=== PATIENT | female | born 1990 | race Caucasian/White ===

== ENCOUNTER 2024-08-22 15:45 | Emergency (ER) | payer MEDICAID, SELFPAY ==
--- NOTE | 2024-08-22 16:26 | XR_ITS ---
EXAMINATION: US OB <= 14 weeks fetus ORDERING PROVIDER: Pete Bland NP HISTORY: abd pain with vaginal spotting TECHNIQUE: Multiplanar still ultrasonography of the pelvis was performed using grayscale imaging, supplemented by color and spectral Doppler as needed. Images were performed transabdominally . COMPARISON: None. FINDINGS: Uterus measures 3.3 x 7.5 x 12.5 cm. Gravid uterus with intrauterine gestation identified. Gestational sac measures 7.3 cm. [place]-rump length 8.0 cm corresponding to dates of 14 weeks 0 days. heart rate 144 bpm. Posterior placenta. Last menstrual period unknown. Right ovary not visualized due to overlying bowel gas. Left ovary 3.6 x 1.8 x 3.3 cm with arterial flow. No adnexal masses identified. IMPRESSION: Single live intrauterine gestation with sonographic dates of 14 weeks 0 days.
--- NOTE | 2024-08-22 16:27 | PD.EDRME ---
Rapid Medical Screening Exam [facility] Arrival date/time: 08/22/24 15:45 CC: Low abdominal and left upper leg pain, low back pain, vaginal spotting HPI onset 24 hours ago. Patient is a G3, P2 at estimated 14 weeks. Denies fever chills nausea vomiting painful urination or bloody urination. Chief Complaint: Abdominal Pain Time Seen by Provider: 08/22/24 16:24
[2024-08-22 16:30] VITALS: BP 112/85; PULSE 64; RESP 18; TEMP 37.1; O2SAT 98; BMI 30.9
[2024-08-22 17:21] LABS: Basophils % (Auto) 0 % (0-2.5); Eosinophils # (Auto) 0.1 Thou/mm3 (0.0-0.5); Eosinophils % (Auto) 2 % (0-10); Hematocrit 37.4 % (36.0-46.0); Hemoglobin 12.6 g/dL (12.0-16.0); Immature Granulocytes % (Auto) 0 % (0-0); Immature Granulocytes Auto 0.01 Thou/mm3 (0.00-0.00); Lymphocytes # (Auto) 1.6 Thou/mm3 (1.0-4.8); Lymphocytes % (Auto) 31 % (10-50); Mean Corpuscular HGB Conc 33.7 g/dl (31.0-37.0); Mean Corpuscular Hemoglobin 29.9 pg (25.0-35.0); Mean Corpuscular Volume 89 fL (80-100); Monocytes # (Auto) 0.6 Thou/mm3 (0.0-0.8); Monocytes % (Auto) 11 % (0-12); Neutrophils # (Auto) 2.9 Thou/mm3 (1.8-7.7); Neutrophils % (Auto) 56 % (37-80); Nucleated Red Blood Cell % 0 /100 WBC (0); Platelet Count 274 Thou/mm3 (140-440); RDW Standard Deviation 43.7 fL (36.4-46.3); Red Blood Count 4.22 Miln/mm3 (4.00-5.20); White Blood Count 5.1 Thou/mm3 (3.6-11.0)
[2024-08-22 17:57] LABS: Alanine Aminotransferase 15 U/L (10-49); Albumin, Serum 4.2 gm/dL (3.5-5.0); Albumin/Globulin Ratio 1.6 (1.2-2.2); Alkaline Phosphatase 58 U/L (46-116); Anion Gap 11 (7-16); Aspartate Amino Transferase 18 U/L (0-34); BUN/Creatinine Ratio 8 Ratio (12-20); Bilirubin,Total 0.6 mg/dL (0.3-1.2); Blood Urea Nitrogen 5 mg/dL (9-23); Calcium 9.1 mg/dL (8.3-10.6); Calcium (Corrected) 9.1 mg/dL (8.5-10.1); Carbon Dioxide 24.9 mMol/L (20.0-31.0); Chloride 99 mMol/L (98-107); Creatinine (Component) 0.6 mg/dL (0.6-1.3); Estimated Creatinine Clearance 135.3 mL/min (>60); Globulin 2.6 gm/dL (2.3-3.5); Glucose 91 mg/dL (74-106); Osmolality,Calculated 267 (275-295); Sodium 135 mMol/L (136-145); Total Protein 6.8 gm/dL (5.7-8.2); eGFR > 60 See Note
[2024-08-22 18:15] LABS: Collection Type, Urine Clean Catch
[2024-08-22 18:45] LABS: Beta HCG,Quantitative 45608 mIU/mL (<5.0)
[2024-08-22 19:06] LABS: Bilirubin,Urine Negative (Negative); Blood,Urine Negative (Negative); Clarity,Urine Turbid (Clear/Hazy); Color,Urine Lt-Yellow (Lt Yel-Yel); Culture Indicated,Urine Not Indicated; Glucose, Urine Negative (Negative); Ketones,Urine 1+ (Negative); Leukocyte Esterase,Urine Positive (Negative); Nitrite,Urine Negative (Negative); Protein,Urine Negative (Neg - Trace); RBC,Urine 3 /hpf (0-3); Specific Gravity,Urine 1.006 (1.001-1.035); Squamous Epithelial Cell,Urine 10 /hpf (0-5); Urobilinogen,Urine Negative mg/dL (0.0-1.0); WBC,Urine 5 /hpf (0-5)
[2024-08-22 19:37] VITALS: BP 132/70; PULSE 78; RESP 18; TEMP 36.8; O2SAT 99
--- NOTE | 2024-08-22 19:39 | PD.EDADULT ---
ED General RME/HPI General Chief complaint: Abdominal Pain Stated complaint: LOWER ABD/BACK CRAMPS, NAUSEA Time Seen by Provider: 08/22/24 16:24 Arrival date/time: 08/22/24 15:45 RME / HPI RME / HPI narrative: 34-year-old female patient, 3 para 2, about 14 weeks , low abdominal, pelvic pain, and left upper leg pain, low back pain, vaginal spotting HPI onset 24 hours ago. Denies any dysuria. Denies any vomiting denies any fever denies any other complaints no medication was taken prior to arrival. Related Data Home Medications ?Medication ?Instructions ?Recorded ?Confirmed vitamins-iron fumarate 27 1 tab PO QDAY 10/25/19 04/27/22 mg iron-folic acid 0.8 mg tablet ( Vitamin) Previous Rx's ?Medication ?Instructions ?Recorded docusate sodium 100 mg capsule 100 mg PO BID #60 caps 04/28/22 (Colace) lanolin 50 % topical ointment 1 applic topical TID PRN skin 04/28/22 irritation #15 tubes hydrocodone 5 mg-acetaminophen 325 1 tab PO Q6H PRN pain #30 tabs 04/29/22 mg tablet Allergies Allergy/AdvReac Type Severity Reaction Status Date / Time adhesive tape Allergy Intermediate Rash Verified 08/11/23 09:30 Review of Systems Review of Systems Narrative Review of Systems: Review of system reviewed and within normal limits except mentioned in HPI ED Exam Narrative Physical exam: VITAL SIGNS: Reviewed. GENERAL APPEARANCE: Alert and interactive, follows commands, no acute distress, HEAD AND FACE: Non-traumatic. ENT: PERRL, pink conjunctivitis, eyelid no trauma, Mucous membrane moist. NECK: Supple, nontender, no nuchal rigidity. CHEST: No tenderness, no crepitus, no paradoxical movement, no retractions. LUNGS: Clear, well ventilated, symmetric, no rales, no wheezing, no ronchi, no stridor, good breath sounds bilaterally. HEART: Regular rate, regular rhythm, no murmur, no gallops. ABDOMEN: Soft, positive bowel sounds, nondistended, no guarding, nontender, no rebound, no masses, RECTAL: Deferred. GENITAL: Deferred. NEUROLOGICAL: Gross motor function intact sensory function intact, Appropriate for age. MUSCULOSKELETAL: low back nontender, full range of motion. EXTREMITIES: Nontender, full range of motion. SKIN: Color pink, dry, no rash, no lacerations, no abrasions, no contusions. LYMPHATICS: Deferred. Course Quality Measures none Orders Category Date Time Status US OB <= 14 weeks fetus Stat Exams 08/22/24 16:26 Completed ABO/RH Type Stat Lab 08/22/24 17:00 Completed Beta HCG,Quantitative Stat Lab 08/22/24 17:00 Completed CBC Stat Lab 08/22/24 17:00 Completed CMP [Comprehensive Metabolic Panel] Stat Lab 08/22/24 17:00 Completed Urinalysis, C/S if Indicated Stat Lab 08/22/24 17:46 Completed Vital Signs Vital signs: Vital Signs Temperature 98.7 F 08/22/24 16:30 Pulse Rate 64 08/22/24 16:30 Respiratory Rate 18 08/22/24 16:30 Blood Pressure 112/85 H 08/22/24 16:30 Pulse Oximetry (%) 98 08/22/24 16:30 Oxygen Delivery Method Room Air 08/22/24 16:30 MDM Patient data External records reviewed:: None Clinical information provided by:: patient Social determinants that could affect healthcare access:: none Patient has the following chronic illnesses:: None How is presenting disease/condition affected by chronic disease/condition?: no chronic disease Evaluation data The following diagnostics were reviewed and interpreted by me:: lab results and radiology exam(s) Lab and/or radiology exams considered but not ordered:: None Interpretation Summary: See results in MDM Medications Medications considered but not ordered:: None Medication administrations:: None Consultations Consultation(s) initiated? (list below): No Diagnosis Differential Diagnosis ED Complaint MDM: Pelvic pain, UTI, incomplete threatened Most likely diagnosis given after review of the tests above:: Pelvic pain, 14 weeks Admission Indicated Admission indicated?: not indicated Explain why admission is indicated or not indicated:: Stable Admission Request Was there a request for admission?: No Disposition Plan Disposition Plan: Discharge Discharge Attestation Discharge Attestation: The patient was given an opportunity to ask questions and understood the discharge instructions. Discharge instructions specifically effects, indications for sooner follow up or return to the emergency department, and the expected course of current diagnosis. Patient condition: Stable Medical Decision Making MDM Narrative MDM Narrative: 34-year-old female patient, 3 para 2, about 14 weeks , low abdominal, pelvic pain, and left upper leg pain, low back pain, vaginal spotting HPI onset 24 hours ago. Denies any dysuria. Denies any vomiting denies any fever denies any other complaints no medication was taken prior to arrival. Laboratory workup all came back normal including normal urinalysis. Ultrasound of the showed single live intrauterine gestation about 14 weeks gestation. Results discussed with the patient. Patient appears nontoxic and hemodynamically stable. Patient discharged home and instructed to follow-up with primary care provider in 24 to 48 hours. Instructed to return to the emergency department immediately if worsening of symptoms Differential Diagnosis Differential Diagnosis: Pelvic pain, UTI, incomplete threatened Lab Data 08/22/24 17:00 08/22/24 17:00 Labs: Lab Results 08/22/24 08/22/24 Range/Units 17:00 17:46 WBC 5.1 (3.6-11.0) Thou/mm3 RBC 4.22 (4.00-5.20) Miln/mm3 Hgb 12.6 (12.0-16.0) g/dL Hct 37.4 (36.0-46.0) % MCV 89 (80-100) fL MCH 29.9 (25.0-35.0) pg MCHC 33.7 (31.0-37.0) g/dl RDW Std Deviation 43.7 (36.4-46.3) fL Plt Count 274 (140-440) Thou/mm3 Neut % (Auto) 56 (37-80) % Lymph % (Auto) 31 (10-50) % [place] % (Auto) 11 (0-12) % Eos % (Auto) 2 (0-10) % Baso % (Auto) 0 (0-2.5) % Neut # (Auto) 2.9 (1.8-7.7) Thou/mm3 Lymph # (Auto) 1.6 (1.0-4.8) Thou/mm3 [place] # (Auto) 0.6 (0.0-0.8) Thou/mm3 Eos # (Auto) 0.1 (0.0-0.5) Thou/mm3 Baso # (Auto) 0.0 (0.0-0.2) Thou/mm3 Immature Gran # (Auto) 0.01 H (0.00-0.00) Thou/mm3 Absolute Nucleated RBC 0.00 (0.00-0.00) Thou/mm3 Immature Gran % 0 (0-0) % Nucleated RBC % 0 (0) /100 WBC Sodium 135 L (136-145) mMol/L Potassium 4.0 (3.4-5.1) mMol/L Chloride 99 (98-107) mMol/L Carbon Dioxide 24.9 (20.0-31.0) mMol/L Anion Gap 11 (7-16) BUN 5 L (9-23) mg/dL Creatinine 0.6 (0.6-1.3) mg/dL Estim Creat Clear Calc 135.3 (>60) mL/min eGFR > 60 (60 - ) See Note BUN/Creatinine Ratio 8 L (12-20) Ratio Glucose 91 (74-106) mg/dL Calculated Osmolality 267 L (275-295) Calcium 9.1 (8.3-10.6) mg/dL Corrected Calcium 9.1 (8.5-10.1) mg/dL Total Bilirubin 0.6 (0.3-1.2) mg/dL AST 18 (0-34) U/L ALT 15 (10-49) U/L Alkaline Phosphatase 58 (46-116) U/L Total Protein 6.8 (5.7-8.2) gm/dL Albumin 4.2 (3.5-5.0) gm/dL Globulin 2.6 (2.3-3.5) gm/dL Albumin/Globulin Ratio 1.6 (1.2-2.2) Beta HCG, Quant 21250 (<5.0) mIU/mL Ur Collection Type Clean Catch Urine Color Lt-Yellow (Lt Yel-Yel) Urine Clarity Turbid A (Clear/Hazy) Urine pH 6.0 (5.0-7.0) Ur Specific [place] 1.006 (1.001-1.035) Urine Protein Negative (Neg - Trace) Urine Glucose (UA) Negative (Negative) Urine Ketones 1+ A (Negative) Urine Blood Negative (Negative) Urine Nitrite Negative (Negative) Urine Bilirubin Negative (Negative) Urine Urobilinogen (Auto) Negative (0.0-1.0) mg/dL Ur Leukocyte Esterase Positive (Negative) Urine RBC 3 (0-3) /hpf Urine WBC 5 (0-5) /hpf Ur Squamous Epith Cells 10 H (0-5) /hpf Urine Bacteria None (None) Ur Culture Indicated? Not Indicated Blood Type A Positive Blood Bank Wristband ID Yes Discharge Plan Plan Patient Disposition: HOME (Self Care) Disposition Comment: Stable Prescriptions/Referrals Prescriptions/Med Rec: No Action Vitamin 27 mg iron- 0.8 mg Tablet 1 tab PO QDAY docusate sodium [Colace] 100 mg capsule 100 mg PO BID Qty: 60 0RF lanolin 50 % ointment 1 applic topical TID PRN (Reason: skin irritation) Qty: 15 0RF hydrocodone-acetaminophen 5-325 mg tablet 1 tab PO Q6H MDD 6 PRN (Reason: pain) Qty: 30 0RF Referrals: No Primary/Family,Physician [Primary Care Provider] - In 1 week Problem List Clinical Impression: related pelvic pain in second trimester, antepartum Patient/Caregiver Discharge Instructions Discharge Activity: activity as tolerated Education Materials: ED Pelvic Pain Preg UKO 2 or 3 Tri Additional Instructions: Thank you for the opportunity for serving you today. You are stable for discharged . You are advised to: Follow-up with your PCP in 1 to 2 days Return to ED for worsening of symptoms Increase oral fluids Take [id number] Tylenol as needed for pain Print Language: Yakut Stand Alone Forms: Coleen Award Info., Patient Portal Info Letter FELISA/ASAD Supervising Physician FELISA/ASAD Supervising Physician: MD Yun
[2024-08-22 19:42] VITALS: RESP 18
== END 2024-08-22 19:43 | disposition home or self-care (01) ==
PROVIDERS: Registered Nurse General Practice; Emergency Provider Emergency Medicine
DX: O26.892 Other specified pregnancy related conditions, second trimester (principal); R10.2 Pelvic and perineal pain; Z3A.14 14 weeks gestation of pregnancy
CPT/HCPCS: 36415; 76801; 80053; 81001; 84702; 85025; 86900; 86901; 99284